=== PATIENT | female | born 1945 | race Caucasian/White ===

== ENCOUNTER 2020-06-03 09:49 | Outpatient (RCR) | payer MEDICARE, SELFPAY ==
[2020-06-03] MEDS: COVID-19 VACC, MRNA(PFIZER)/PF 30 MCG/0.3 ML SYRINGE IM (17:02)
[2020-06-24] MEDS: COVID-19 VACC, MRNA(PFIZER)/PF 30 MCG/0.3 ML SYRINGE IM (16:27)
== END 2020-09-07 23:59 ==
LOC: IMMUN 09:49
PROVIDERS: PCP Internal Medicine; Visit Provider Family Medicine
DX: Z23 Encounter for immunization (principal)
CPT/HCPCS: 0001A; 0002A; 91300

== ENCOUNTER 2022-10-30 17:30 | Outpatient (RCR) | payer SELFPAY | END 2022-10-30 23:59 | LOC: NS 17:30 | PROVIDERS: PCP Internal Medicine | DX: Z71.3 Dietary counseling and surveillance (principal); E11.9 Type 2 diabetes mellitus without complications ==

== ENCOUNTER 2023-05-30 11:34 | Emergency (ER) | payer MEDICARE, SELFPAY ==
[2023-05-30] VITALS (11 sets, daily range): BP systolic 104–141; BP diastolic 56–77; PULSE 82–112; RESP 14–19; TEMP 36.2–36.4; O2SAT 96–100; BMI 24.1
--- NOTE | 2023-05-30 12:03 | RAD_ITS ---
STUDY: X-RAY CHEST REASON FOR EXAM: Female, 77 years old. Sob TECHNIQUE: Single AP portable view of the chest. COMPARISON: Comparison is made with prior study February 18, 2029. FINDINGS: EKG electrodes are seen. The lungs are clear and expanded. There is no demonstrated pleural abnormality. Normal size heart. Normal mediastinum and quinton. Normal visualized pulmonary arteries. There is atherosclerotic calcification of the aortic arch with tortuosity. There are diffuse degenerative changes of the visualized thoracic spine. Prior right rotator cuff surgery. Degenerative changes at the acromioclavicular joints. There is no demonstrated abnormality of the visualized soft tissue structures of the upper abdomen. RAD/Chest 1 View (Portable) IMPRESSION: No acute abnormality is seen. Electronically Signed: Pablo Baxter MD at 13:21 EST ,
--- NOTE | 2023-05-30 12:04 | EKG12_ITS ---
Test Reason : HYPOTENSION Blood Pressure : / mmHG Vent. Rate : 090 BPM Atrial Rate : 090 BPM P-R Int : 144 ms QRS Dur : 082 ms QT Int : 408 ms P-R-T Axes : 066 -03 137 degrees QTc Int : 499 ms Normal sinus rhythm ST & T wave abnormality, consider anterolateral ischemia Prolonged QT Abnormal ECG Confirmed by ISIAH COLEMAN, SHELLY ([id number]), assistant production editor LELA JOHNSON ([id number]) on 06/04/2023 6:58:25 AM Referred By: ELVIN Confirmed By:LUIS A JOYCE MD
[2023-05-30] MEDS: 0.9% Normal Saline (1000mL) 1,000 ML 1000 ML IV (12:16)
--- NOTE | 2023-05-30 12:23 | EDS_ITS ---
HPI History of Present Illness Chief Complaint: Weakness Informant: patient Narrative Narrative: Patient is a 77-year-old female with history of hypertension, diabetes mellitus and coronary artery disease presenting with low blood pressure. Patient for outpatient cardiac stents placed 2 days ago at [facility]. Patient states since then she has been feeling lightheaded. She notes her blood pressure is normally high (140s). She has since been feeling weak and dizzy. She denies associated chest pain or shortness of breath but has been having some nausea and daily vomiting which she describes as yellow. She had a phone call today from [facility] to check and see how she was doing after her procedure. She told about her symptoms and had her check her blood pressure. At home her blood pressure was 89/48 and they recommend she come to the nearest emergency room. Patient notes that she is chronically constipated with no acute change in her stools. Eyes any black or blood in her stool. Denies abdominal pain or urinary symptoms. She does tell me that she has been having some mild headache and neck ache since even before her procedure. She is unsure if it is related. She also recently sprained her right ankle. Denies any swelling of her legs. Denies any history of DVT or PE. No other complaints or concerns verbalized at this time. Outpatient records of cardiac catheterization reviewed. Patient had PCI of the LAD 1994 and is found to have multivessel coronary artery disease on cardiac catheterization performed for an abnormal stress test. She had PCI directed to the LAD and RCA performed 2 days ago. She started on aspirin and Plavix. PFSH PFSH Home Medications acetaminophen 500 mg tablet (Acetaminophen Extra Strength) 500 mg PO Q6H PRN HIP PAIN 05/30/23 [History Last Taken 05/29/23] aspirin 81 mg tablet,delayed release (Adult Aspirin Regimen) 81 mg PO QHS HEART HEALTH 05/30/23 [History Last Taken 05/29/23] clopidogrel 75 mg tablet 75 mg PO DAILY BLOOD THINNER 05/30/23 [History Last Taken 05/29/23] escitalopram oxalate 10 mg tablet 10 mg PO DAILY DEPRESSION 05/30/23 [History Last Taken 05/29/23] gabapentin 400 mg capsule 400 mg PO QHS NERVE PAIN 05/30/23 [History Last Taken 05/29/23] insulin glargine 100 unit/mL (3 mL) subcutaneous pen (Lantus Solostar U-100 Insulin) 28 unit subcut DAILY BLOOD SUGARS 05/30/23 [History Last Taken 05/27/23] lisinopril 10 mg tablet 10 mg PO BID BLOOD PRESSURE 05/30/23 [History Last Taken 05/29/23] loratadine-pseudoephedrine ER 10 mg-240 mg tablet,extended [id number] (AllerCle ar D-24hr) 1 tab PO Q24H PRN SEASONAL ALLERGIES 05/30/23 [History Last Taken 05/29/23] metformin 500 mg tablet,extended release 24 hr 500 mg PO DAILY BLOOD SUGARS 05/30/23 [History Last Taken 05/27/23] semaglutide 0.25 mg or 0.5 mg (2 mg/3 mL) subcutaneous pen injector (Ozempic) 0.5 mg subcut SA DIABETES 05/30/23 [History Last Taken 05/26/23] Allergy/AdvReac Type Severity Reaction Status Date / Time nitrofurantoin Allergy Other Verified 05/30/23 11:39 [From Macrobid] Sulfa (Sulfonamide Allergy Hives Verified 05/30/23 11:39 Antibiotics) [id number] Reductase AdvReac Mild WEAKNESS Verified 05/30/23 11:39 Inhibitor Surgical History Hx of heart artery stent Social History Smoking Status: Never smoker ROS ROS ED Constitutional Constitutional ED: Reports other Details: lightheaded, near syncope ; Denies chills or fever(s) Eyes Eyes: Denies blurry vision or change in vision Cardiovascular Cardiovascular: Denies chest pain or palpitations Respiratory/Chest Respiratory/Chest: Denies cough or dyspnea Gastrointestinal Gastrointestinal: Reports vomiting; Denies abdominal pain or constipation Genitourinary Genitourinary ED: Denies dysuria or urinary frequency Musculoskeletal Musculoskeletal: Denies arthralgias or myalgias Integumentary Denies rash Neurologic Neurologic: Reports headache(s); Denies paresthesias or weakness Psychiatric Psychiatric: Denies anxiety EXAM Physical Exam Const Vital Signs: 05/30/23 11:35 05/30/23 11:42 05/30/23 12:35 Temperature 97.2 F L Temperature Source Temporal Pulse Rate 96 87 Pulse Rate [Lying] Pulse Rate [Sitting (for 1 minute prior to obtaining)] Pulse Rate [Standing (for 1 minute prior to obtaining)] Respiratory Rate 15 14 Respiratory Effort Normal Non-Labored Respiratory Pattern Normal Blood Pressure 106/56 L 104/59 L Blood Pressure [Lying] Blood Pressure [Sitting (for 1 minute prior to obtaining)] Blood Pressure [Standing (for 1 minute prior to obtaining)] Blood Pressure Mean 72 74 Blood Pressure Mean [Lying] Blood Pressure Mean [Sitting (for 1 minute prior to obtaining)] Blood Pressure Mean [Standing (for 1 minute prior to obtaining)] Pulse Ox 100 98 Oxygen Delivery Method Room Air Room Air 05/30/23 13:00 05/30/23 13:53 05/30/23 14:20 Temperature Temperature Source Pulse Rate 83 88 Pulse Rate [Lying] 85 Pulse Rate [Sitting (for 1 minute prior to obtaining)] 92 Pulse Rate [Standing (for 1 minute prior to obtaining)] 108 H Respiratory Rate 18 16 Respiratory Effort Respiratory Pattern Blood Pressure 118/66 131/66 H Blood Pressure [Lying] 119/69 Blood Pressure [Sitting (for 1 minute prior to obtaining)] 118/66 Blood Pressure [Standing (for 1 minute prior to obtaining)] 128/76 H Blood Pressure Mean 83 87 Blood Pressure Mean [Lying] 85 Blood Pressure Mean [Sitting (for 1 minute prior to obtaining)] 83 Blood Pressure Mean [Standing (for 1 minute prior to obtaining)] 93 Pulse Ox 100 97 Oxygen Delivery Method Room Air Room Air 05/30/23 14:30 05/30/23 15:04 05/30/23 16:19 Temperature 97.6 F L Temperature Source Pulse Rate 89 82 93 Pulse Rate [Lying] Pulse Rate [Sitting (for 1 minute prior to obtaining)] Pulse Rate [Standing (for 1 minute prior to obtaining)] Respiratory Rate 14 19 H 17 Respiratory Effort Respiratory Pattern Blood Pressure 130/74 H 125/73 H 125/71 H Blood Pressure [Lying] Blood Pressure [Sitting (for 1 minute prior to obtaining)] Blood Pressure [Standing (for 1 minute prior to obtaining)] Blood Pressure Mean 92 90 89 Blood Pressure Mean [Lying] Blood Pressure Mean [Sitting (for 1 minute prior to obtaining)] Blood Pressure Mean [Standing (for 1 minute prior to obtaining)] Pulse Ox 98 98 Oxygen Delivery Method Room Air Positive well nourished General Appearance ED: NAD HEENT Reports moist mucous membranes Eyes PERRL Neck supple and no JVD Chest Wall inspection of chest normal and palpation of chest normal Resp normal respiratory effort and clear to auscultation bilaterally Cardio regular rate, regular rhythm and no murmurs GI normal to inspection, nondistended, normoactive bowel sounds and non-tender Palpation: Negative for guarding Back/Spine no CVA tenderness Extremity normal to inspection General Extremety ED: Negative for edema General Extremity: Negative for edema Neuro oriented x3 Sensorium / Orientation: alert Motor Exam: Negative for general weakness Psych mental status grossly normal Skin no rashes or lesions noted and no wounds Skin Narrative: Ecchymosis of the right wrist consistent with bruising associated the recent cardiac catheterization. No associated hematoma or pulsatile mass appreciated. MDM MDM MDM Narrative Medical decision making narrative: Patient is evaluated for low blood pressure at home. She had an outpatient cardiac catheterization 2 days ago. Patient blood pressures are soft but she is not hypotensive in the ER. Workup including CBC, D-dimer, lactate, troponin and BMP obtained given her hypotension and recent cardiac catheterization. She is given a liter of IV fluid with improvement of her blood pressure in the ER. She is not tachycardic. EKG shows T wave inversions in lateral leads as well as precordial leads however I do not have a comparison. Patient is a very mild leukocytosis of 11.2 of unclear clinical significance. No signs of left shift. She has a mild anemia with a hemoglobin of 11.7. Coags are normal. Patient states has been compliant with her Plavix and aspirin. Her D-dimer is elevated at 0.95 however her creatinine is more significantly elevated at 1.94. She is a mild hyponatremia with a sodium of 130 and hyperglycemia the glucose of 275. Patient does tell me that she has not been taking her diabetic medications this week. [place] [address]. Labs from Sunday on [facility] show a creatinine of 1.39, glucose of 85 and sodium of 136. Given the significantly elevated troponin and I believe that a proportion to her recent stent, I discussed the case with cardiology on-call, Dr. Avery. He feels that patient would get the most benefit out of transfer back to [facility] were all of her workup has previously been and they have all of her records. Patient is agreeable with this. I spoke with transfer line and spoke with nurse practitioner for the cardiac ICU, Patricia. She tells me that the patient's prior EF was 55% and the T wave versions in the lateral leads are old but it appears that the T wave inversions in the anterior leads are new. Given this information she started on a heparin drip will be treated as an NSTEMI. She is accepted by Dr. Queen to the cardiac floor but after discussion with nurse practitioner we both agree that she does not require a cardiac ICU level of care despite her elevated lactate. She is fluid responsive in the ER. On repeat evaluation patient states that she still feels a lot of tightness in her neck but she is not sure if this is anxiety related. She is given 0.5 IV Ativan with improvement of this. Patient remains hemodynamically stable in the ER and agreeable with plan of care. Will refrain from CTA given her DUNCAN at this time but patient is empirically treated on heparin drip. Per request of CICU, bedside cardiac ultrasound performed by myself which does not show any obvious abnormality such as a large pericardial effusion, tamponade pathology or significantly low EF on gross examination. Differential diagnosis includes ACS, volume depletion, septicemia, electrolyte abnormality, decompensated hyperglycemia (DKA), NSTEMI, coronary artery dissection, abnormality of the stents, PE Lab Data Attestation: I reviewed the patient's lab results. Labs: Laboratory Results - last 24 hr 05/30/23 12:17 WBC 11.2 H RBC 4.36 Hgb 11.7 L Hct 37.0 MCV 84.9 MCH 26.8 L MCHC 31.6 L RDW Std Deviation 43.9 RDW Coeff of Dimitris 14.3 Plt Count 450 MPV 8.8 Immature Gran % (Auto) 0.400 Neut % (Auto) 68.4 Lymph % (Auto) 20.8 Glenn % (Auto) 9.3 Eos % (Auto) 0.5 Baso % (Auto) 0.6 Absolute Neuts (auto) 7.6 Absolute Lymphs (auto) 2.32 Nucleated RBC % 0 PT 13.3 INR 1.0 APTT 30.3 D-Dimer Quant (PE/DVT) 0.95 H* Sodium 130 L Potassium 4.6 Chloride 98 Carbon Dioxide 21.0 Anion Gap 11 BUN 37 H Creatinine 1.94 H Estim Creat Clear Calc 21.51 Est GFR (MDRD) Af Amer 32 L Est GFR (MDRD) Non-Af 27 L BUN/Creatinine Ratio 19.1 Glucose 275 H Lactic Acid 3.4 H* Calcium 9.3 Troponin I High Sens 16445 H* Radiography Chest X-Ray - ED: 1 View, Read by ED Physician, Read by Radiologist and No Acute Disease Diagnostic Testing: Clinical Impression(s) from Imaging Studies Chest X-Ray 05/30/23 12:03 IMPRESSION: No acute abnormality is seen. Electronically Signed: Pablo Baxter MD at 13:21 EST , Rhythm Strip Rhythm Strip: Sinus Rhythm Rate: 90 Ectopy: None EKG Initial EKG: Attestation: I personally reviewed and interpreted this EKG as follows: Interpretation: Sinus Rhythm Comments: Normal sinus rhythm rate of 90 bpm Normal axis Normal intervals Nonspecific T wave changes in lateral and anterior leads, no prior EKG available for comparison Critical Care Time Critical Care Time: Yes Critical care time (excluding procedures): 30-74 minutes (40), Discussing w/Pa tient &/or Family/Entry Level, Discussing w/Consultants, Arranging Admission or Transfer and Performing Direct Patient Care at Bedside Discharge Plan Triage Chief Complaint: Weakness ED Provider: Lynda Schultz Dx/Rx/DC Orders Clinical Impression: DUNCAN (acute kidney injury), Light-headed, Hyperglycemia, Hyponatremia, Non-ST elevation NV (NSTEMI), Elevated lactic acid level Prescriptions: No Action clopidogrel 75 mg tablet 75 mg PO DAILY escitalopram oxalate 10 mg tablet 10 mg PO DAILY gabapentin 400 mg capsule 400 mg PO QHS metformin 500 mg tablet extended release 24 hr 500 mg PO DAILY insulin glargine [Lantus Solostar U-100 Insulin] 100 unit/mL (3 mL) insulin pen 28 unit SUBCUT DAILY lisinopril 10 mg tablet 10 mg PO BID Ozempic 0.25 mg or 0.5 mg (2 mg/3 mL) pen injector 0.5 mg SUBCUT SA acetaminophen [Acetaminophen Extra Strength] 500 mg tablet 500 mg PO Q6H PRN (Reason: HIP PAIN ) Patient Comments: PT STATES THAT THEY TYPICALLY TAKE THIS EVERY DAY FOR THEIR HIP PAIN. aspirin [Adult Aspirin Regimen] 81 mg tablet,delayed release (DR/EC) 81 mg PO QHS AllerClear D-24hr 10-240 mg tablet extended release 24 hr 1 tab PO Q24H PRN (Reason: SEASONAL ALLERGIES ) Primary Care Provider: Alphonso Russell Referrals: Alphonso Russell MD [Primary Care Provider] - Disposition Disposition: Acute Care Hospital Discharge Location: [facility]
[2023-05-30 12:27] LABS: Absolute Lymphocyte Count 2.32 X10^3/uL (0.83-4.51); Absolute Neutrophil Count 7.6 X10^3/uL (2.0-7.7); Basophil# 0.07 X10^3/uL; Basophil% 0.6 % (0-1); Eosinophil# 0.06 X10^3/uL; Eosinophils% 0.5 % (0-5); Hemoglobin 11.7 g/dL (12.0-15.0); Lymphocyte # 2.32 X10^3/ul (0.83-4.51); Lymphocyte % 20.8 % (19-41); Mean Corp Hgb Conc 31.6 g/dL (32-36); Mean Corpuscular Hgb 26.8 pg (27.0-32.0); Mean Corpuscular Volume 84.9 fL (81-99); Mean Platelet Vol. 8.8 fl (6.2-12.0); Monocyte# 1.04 X10^3/uL; Monocyte% 9.3 % (0-10); NRBC Flagged by Analyzer 0 % (0-5); Neutrophil # 7.63 X10^3/uL (2.7-7.7); Neutrophil % 68.4 % (47-70); Platelet Count 450 K/mm3 (150-450); RBC Distribution Width CV 14.3 % (11.6-14.6); RBC Distribution Width SD 43.9 fl (35.1-43.9); Red Blood Count 4.36 M/mm3 (4.2-5.4); White Blood Count 11.2 K/mm3 (4.4-11.0)
[2023-05-30 12:56] LABS: D-Dimer Quantitative (DVT/PE) 0.95 FEU/ug/m (0.27-0.49)
[2023-05-30 12:58] LABS: Lactic Acid 3.4 mmol/L (0.4-1.9)
[2023-05-30 13:08] LABS: Anion Gap 11 (5-15); BUN 37 mg/dL (7-18); BUN/Creat Ratio 19.1 RATIO (10-20); Calcium,Total 9.3 mg/dL (8.5-10.1); Chloride 98 mmol/L (98-107); Creatinine, Serum 1.94 mg/dL (0.55-1.02); EST Glomerular Filtration Rate 27 mL/min (>60); Est Glom Filt Rate - Afr Amer 32 mL/min (>60); Estimated Creatinine Clearance 21.51 ml/min; Glucose 275 mg/dL (74-106); Potassium 4.6 mmol/L (3.5-5.1); Sodium Level 130 mmol/L (136-145); Troponin-I HS (w/2H Reflex) 35430 pg/mL (3.0-54.0)
[2023-05-30] MEDS: Lorazepam 2 MG/ML WCH Syringe 0.5 MG IV (14:35)
[2023-05-30] MEDS: 0.9% Normal Saline (1000mL) 1,000 ML 100 ML IV (14:35)
[2023-05-30] MEDS: Heparin Injection (Vial) 5,000 UNIT/ML VIAL 4000 UNIT IV (15:35)
[2023-05-30] MEDS: HEPARIN/D5w 25,000 UNITS 25,000 UNITS/250 ML IV.SOLN. 0.1 UNITS CONT INF (15:36)
[2023-05-30 15:38] LABS: Prothrombin Time (Protime)PT. 13.3 SECONDS (11.7-14.9)
[2023-05-30 15:39] LABS: Partial Thromboplast Time 30.3 Seconds (24.1-36.2)
--- NOTE | 2023-05-30 15:39 | CHAPLAIN ---
Type of Pastoral Visit _x__ Initial Visit ___ Follow-up Visit ___ On-call Visit ___ General Patient Visit ___ Spiritual Assessment ___ Family Conference ___ Bereavement ___ Rapid Response ___ Code Blue ___ Other (describe below) Pastoral Care Referral From _x__ Patient _x__ Family ___ Nurse ___ Physician ___ Forensics Team Director ___ Glass Edger ___ Other (describe below) Sacrament/Intervention _x__ Active listening ___ Anointing ___ Oriental Orthodox ___ Bereavement ___ Communion ___ Lexii exploration ___ ___ Life review _x__ Prayer ___ Reconciliation ___ Sacrament of Sick _x__ Supportive presence ___ Wedding ___ Other (describe below) Pastoral Comments patient is to be transferred and is concerned about her health as she just had four stents placed earlier this week; pt asks for presence, prayers, support, and contact to be made with her protestant
[2023-05-30 16:22] LABS: Reflex Lactate? Y
--- NOTE | 2023-05-30 16:24 | ED.RN ---
[facility] CALLED AT 1415, ETA 2-3 HOURS ([phone]). REQUESTED OUTSOURCING, RAYMUNDO FROM [facility] CALLED BACK AT 1624 TO LET US KNOW HE REACHED OUT AND NO OUTSOURCING WAS AVAILABLE.
--- NOTE | 2023-05-30 18:10 | EKG12_ITS ---
Test Reason : CP Blood Pressure : / mmHG Vent. Rate : 111 BPM Atrial Rate : 111 BPM P-R Int : 148 ms QRS Dur : 100 ms QT Int : 364 ms P-R-T Axes : 067 -27 139 degrees QTc Int : [address] & T wave abnormality, consider lateral ischemia Abnormal ECG Confirmed by ISIAH COLEMAN, SHELLY ([id number]), editor map LELA JOHNSON ([id number]) on 06/04/2023 9:35:04 AM Referred By: Confirmed By:LUIS A JOYCE MD
[2023-05-30] MEDS: LORazepam 0.5 MG Tablet PO (18:43)
--- NOTE | 2023-05-30 18:46 | ED.RN ---
SHORTLY AFTER INFORMING PT AND FAMILY THAT THE WOULD NOT BE ABLE TO SPEND THE NIGHT AT [facility] PT DEVELOPED CP. EKG AND BLOOD WORK OBTAINED. MEDICATED PT WITH ATIVAN SHE PREVIOUSLY REQUESTED.
[2023-05-30 19:07] LABS: Lactic Acid 1.9 mmol/L (0.4-1.9)
[2023-05-30 19:46] LABS: Troponin-I HS 26492 pg/mL (3.0-54.0)
== END 2023-05-30 20:30 | disposition short-term general hospital (02) ==
PROVIDERS: Student in an Organized Health Care Education/Training Program; Emergency Provider Emergency Medicine; PCP Internal Medicine; Visit Provider Emergency Medicine
DX: I21.4 Non-ST elevation (NSTEMI) myocardial infarction (principal); E11.65 Type 2 diabetes mellitus with hyperglycemia; Z79.4 Long term (current) use of insulin; N17.9 Acute kidney failure, unspecified; I95.9 Hypotension, unspecified; E87.1 Hypo-osmolality and hyponatremia; I25.10 Atherosclerotic heart disease of native coronary artery without angina pectoris; I10 Essential (primary) hypertension; R42 Dizziness and giddiness; R74.02 Elevation of levels of lactic acid dehydrogenase [LDH]; Z95.5 Presence of coronary angioplasty implant and graft; Z79.82 Long term (current) use of aspirin; Z79.02 Long term (current) use of antithrombotics/antiplatelets; Z79.899 Other long term (current) drug therapy
CPT/HCPCS: 71045; 80048; 83605; 84484; 85025; 85379; 85610; 85730; 93005; 96360; 96361; 99285; J7030; A4216

== ENCOUNTER → 2023-07-13 09:57 | Outpatient (CLI) | payer MEDICARE, SELFPAY ==
--- NOTE | 2023-07-13 10:13 | PCM.CR.HP2 ---
CR - History & Physical General Arrival date:: 07/13/23 Arrival time:: 10:13 Date of Referral:: 07/04/23 Date of CR Evaluation:: 07/13/23 Referring Physician: Dr. Kina Pearson Primary Diagnosis: PCI with coronary stent History of Present Cardiac Event Onset Date PTCA or coronary stenting:: Yes Vessel: onset06/14/2023 Medications Ambulatory Orders Medication Instructions Recorded acetaminophen 500 mg tablet 500 mg PO Q6H PRN HIP PAIN 05/30/23 (Acetaminophen Extra Strength) aspirin 81 mg tablet,delayed 81 mg PO QHS HEART HEALTH 05/30/23 release (Adult Aspirin Regimen) clopidogrel 75 mg tablet 75 mg PO DAILY BLOOD THINNER 05/30/23 escitalopram oxalate 10 mg tablet 10 mg PO DAILY DEPRESSION 05/30/23 gabapentin 400 mg capsule 400 mg PO QHS NERVE PAIN 05/30/23 insulin glargine 100 unit/mL (3 28 unit subcut DAILY BLOOD SUGARS 05/30/23 mL) subcutaneous pen (Lantus Solostar U-100 Insulin) lisinopril 10 mg tablet 10 mg PO BID BLOOD PRESSURE 05/30/23 loratadine-pseudoephedrine ER 10 1 tab PO Q24H PRN SEASONAL 05/30/23 mg-240 mg tablet,extended ALLERGIES [id number] (AllerClear D-24hr) metformin 500 mg tablet,extended 500 mg PO DAILY BLOOD SUGARS 05/30/23 release 24 hr semaglutide 0.25 mg or 0.5 mg (2 0.5 mg subcut SA DIABETES 05/30/23 mg/3 mL) subcutaneous pen injector (Ozempic) Allergies Allergies nitrofurantoin [From Macrobid] Allergy (Verified 05/30/23 11:39) Other Gets pneumonia Sulfa (Sulfonamide Antibiotics) Allergy (Verified 05/30/23 11:39) Hives [id number] Reductase Inhibitor Adverse Reaction (Mild, Verified 05/30/23 11:39) WEAKNESS Sleep Disorder Evaluation Hx of Sleep Apnea: No Do you snore loudly (louder than talking or can be heard through closed doors)?: No Do you often feel tired/ fatigued/ sleepy during daytime?: No Has anyone observed you stop breathing during sleep?: No History of Hypertension (for STOP score): Yes STOP Results: Negative Advanced Directives Advanced Directives Power of Plant Physiologist: Yes Living Will: Yes Advance Directives Information Provided: Yes Advance Directives on File: No DNR Order?:: No Past Medical History Covid-19 Screening Physicial Symptoms Other Clinical Concerns Exposure Risk Pertinent Comorbidities 65 years or older:: Yes Has a serious heart condition:: Yes Has chronic kidney disease undergoing dialysis:: Yes Past Surgical History Surgical History Hx of heart artery stent Social History Smoking History Smoking Status: Never smoker Alcohol Use Alcohol Usage: No Substance Abuse Hx Substance Use: No Occupation Occupation (List type of work in comments):: Retired Hobbies, Recreation, Social Activities Hobbies: Reading Recreational Activities: I am able to engage in all my recreational activities Social Environment Status Marital Status: Current Living Arrangements Living Environment:: Spouse Children How many children do you have?: 4 Do any of your children live nearby?: Yes Safety Do you feel safe in your surroundings?: Yes Assistance Do you need any assistance at home?: no Review of Systems Review of Systems Hints Review of Present Symptoms: Reports Dizziness/Lightheadedness, Fatigue, Heart Arrhythmia/Irregularities, Appetite - Special Diet and Sleep - Normal; Denies Shortness of Breath at Rest, Shortness of Breath with Exertion, PVD, Operative Discomfort, Angina, Wound Healing, Appetite - Normal or Sexual Changes Pain Is Patient Pain Free?: Yes Risk Factor Assessment Chief Complaint Chief Complaint: PCI with coronary stent Vital Signs Pulse Ox: 100 Blood Pressure: 132/60 Pulse Pulse Rate: 61 Hypertension How long have you been treated?: 30 years Blood Pressure Sitting - Left Arm: 132/60 Diabetes Diabetic History: Type II Nutrition Referral for Diabetes: No Obesity Height: 5 ft 5 in Weight:: 147 lb 12.8 oz Weight in Pounds: 147.8 lbs Body Mass Index (BMI): 24.5 Nutritional Referral for Obesity: No Physical Inactivity Physical Inactivity: Recreational activity Risk Stratification Risk Guidelines: Lowest Risk: Risk Factor for Smoking, Moderate Risk: Risk Factor for Obesity, Risk Factor for Sedentary Lifestyle and Risk Factor for Depression and Highest Risk: Risk Factor for Dyslipidemia, Risk Factor for Diabetes and Risk Factor for Hypertension For Smoking Smoking Risk Guidelines For Dyslipidemia Dyslipidemia Risk Guidelines For Diabetes Mellitus Diabetes Risk Guidelines For Obesity/Overweight Obesity/Overweight Risk Guidelines For Hypertension Hypertension Risk Guidelines For Sedentary Lifestyle Sedentary Lifestyle Risk Guidelines For Depression Depression Risk Guidelines Motivation Motivation to Participate On a scale of 1 to 10, how prepared are you to commit to attending program?: 8 What do you see as barriers to successfully being able to complete the program?: no What do you see as the benefits of succesfully completing the program? In other words, what do you hope to get out of participating in the program?: learn what she can do Are there issues you are dealing with that will interfere with completing the program?: no Do you have a spouse or signficant other, family or friends who will help support you to complete the program?: yes
--- NOTE | 2023-07-13 10:19 | CR.ITP_ITS ---
Diagnosis General Information Admitting Diagnosis: PCI with coronary stent Personal Learning Style:: Audio/Visual Stage of change r/t lifestyle modifications:: Contemplation Gave educational material for:: Treating Heart Disease, How The Heart Works, Wha t it means to have Heart Disease, How Coronary Artery Disease is Diagnosed, Heart Procedures, What Heart Medications Do, Risk Factors & Modifications, Living an Active Life, Nutrition, Emotions & Heart Disease, Stress Management & Relaxation and Sleep Disorders & Heart Disease Education/Goals Cardiac Rehabilitation Goals Personal Goals: Initial Assessment: Improve energy level, Participate in home exercise program and Improve muscle strength and endurance Scale for measuring improvement of personal goals Diagnosis & Disease Process Outcomes/Goals: Pt IDs own risk factors & lifestyle modifications by Session 10, Verbalizes symptoms of angina & response by session 3., Pt independently manages and Other Additional Outcomes/Goals: Plan/Interventions: Assist Pt to ID & engage in lifestyle modification to reduce CVD risk, Instruct on individual risk factors, Review symptoms of angina & emergency actions, Review secondary diagnosis & identify educational needs. and Other see comment 30 day Reassessments:: Not Met 30 day Reassessments:: Not Met 30 day Reassessments:: Not Met 30 day Reassessments:: Not Met Final Reassessments:: Not Met Safety Referral to Physical Therapy: No Referral to [facility] Case Management: No Fall Risk Assessed:: Yes Assistive Devices:: None Exercise - Initial Assessment Visit Date of Eval: 07/13/23 (initial eval ) Mets: Pre-: >3 METS for 30 minutes by discharge, >5 METS for 30 minutes by discharge, >7 METS for 30 minutes by discharge and Unable to meet goal due to: (see comment below) Physician Prescribed Exercise Modalities: Treadmill, Rower, Airdyne, NuStep, SciFit and Lateral [employer] Frequency: 3x/week for 12 weeks [36 sessions] Intensity: 60-80% of age predicted maximum heart rate reserve Duration: 30 - 45 minutes Current METSs:: 3 Target Heart Rate:: Rest +20 EKG Type: NSR with HX of Sinus Tach Outcomes & Goals Goals:: Verbalizes understanding of THR, RPE & goal METS by session 6, Documents in home exercise log/reports 30 min aerobic 5 day/wk by DC, Demonstrates accurate pulse taking by DC and Other additional outcome/goals: see below Intervention & Plan Exercise Program Goals: Instruct on personal THR & RPE, Instruct on MET level & personal MET goal, Show patient to take own pulse /validate performance until accurate, Instruct on home exercise and Other additional plan/int Physical Activity Home Exercise Physical Activity - Home Exercise: Safe Exercise, Warm-up, Self-monitoring, Cool-Down, Home Exercise > 30 min Daily and Sitting Time <3 hours/daily Outcomes & Goals Outcomes/Goals: Demonstrates correct Warm-up/exercise Cool-Down (S3) if = 2.5 METs, Verbalizes symptoms of exercise intolerance by Session 3 (S3), Demonstrate safe equipment use (S3) & follows exercise prescrition (6) and Other: See below Intervention & Plan Plan/Intervention: Instruct warm-up & cool-down if exercising at > 2 METs, Instruct on symptoms of exercise intolerance & actions to take, Instruct & monitor on saf, Assess intial functional capacity & safety risk and Other See below Nutrition - Initial Assessment Program Goals Nutrition Program Goals Patient has diagnosis of Hyperlipidemia (ICD E78)?: Yes Visit Date of Eval: 07/13/23 (initial eval ) Cholesterol/Lipids (Other Core Measures) Determine presence & major risk factors that modify LDL goal: Hypertension or hypertensive medication, Low HDL cholesterol <40 mg/dL*, Family history of premature CHD in Male < 55 years: female <65 yearsFa and Age men > 45 years; women >/= 55 years Outcomes/Goals: Pt IDs own risk factors & lifestyle modifications by Session 10, Verbalizes symptoms of angina & response by session 3., Pt independently manages and Other Additional Outcomes/Goals: Intervention/Plan: Advocate for lipid panel cholesterol medication if applicable, Instruct on personal lipid levels & lipid goals/NCEP guidelines, Instruct on cholesterol and Other additional plan/int Referral to dietitian:: No Diabetes (Other Core Measures) Diabetes Type: Diagnosis Type II ICD-10 E11 Insulin dependent injection/pump?: Yes Non-Insulin Dependent?: Yes Do you monitor your blood sugar at home?: Yes Referral to Diabetic Clinic:: No Outcomes/Goals:: Able to state symptoms of, Able to state, Able to state and Other additional Intervention/Plan:: Instruct on, Refer to, Instruct on and Other Weight Mgt (Other Care) Height: 5 ft 5 in Weight:: 147 lb 12.8 oz BMI: 24.5 Diagnosis Overweight/Obesity BMI> 30% ICD-10 E66: No Diagnosis High BMI/Morbid Obesity BMI> 35% ICD-10 Z68: No Outcomes/Goals: Pt sets, maintains & shows weight loss goal & trend during rehab and Other additional outcomes/goals Intervention/Plan: Instruct on ideal BMI & set weight loss goal w/patient, Assist pt to ID & incorporate diet changes for weight loss by S9, Refer to Structured Weight Loss program as appropriate, Encourage goal of using 250- 300dcal per session for weight loss and Other additional plan/interventions Healthy Eating Habits Will attend diet classes:: Yes Outcomes/Goals:: Consume diet rich in vegs,fruits,whole grain/high fiber,fish,lean meat, Limit sat/trans fats,cholesterol & added salts & sugars and Other additional outcome/goals: Intervention/Plan:: Assess current eating habits and Other Additional plan/interventions Education Gave educational materials for:: Signs & symptoms of hypoglycemia, Signs & symptoms of hyperglycemia, Relate diabetes to coronary artery disease and Healthy eating Core - Initial Assessment Visit Date of Eval: 07/13/23 (initial eval ) Medication Compliance Preventative Medication(s):: Aspirin, Statin/lipid and Beta carmita H/O mental health issues: depression, anxiety, or addiction?: No Doesn?t believe in the benefits of treatment?: No Believes medications are unnecessary or harmful?: No Has a concern about medication side effects?: No Expresses concern over the cost of medications?: No Outcomes/Goals: Verbalizes medications,desired effect & common side effects @ DC, Pt self-reports following medication regimen, Keeps card in wallet w/medications listed by DC and Other additional outcome/goals: Interventions/plans: Instruct on medication effects & side effects, Review medication list w/patient every two weeks, Instruct importance of taking meds as ordered & assist problem solving and Other additional Tobacco Use Tobacco Use: Non-smoker Hypertension Hypertension Diagnosis:: Hypertension ICD-10 I10 Resting Blood Pressure:: 132/60 Citizen Of [place] [employer] Hypertension Guidelines Outcomes/Goals: Able to verbalize/achieve optimal blood pressure <130/80, Incorporates diet changes & exercise for blood pressure control by DC and Other additional outcomes/goals Interventions/plan: Instruct on optimal blood pressure, hypertension & medications, Instruct on effects of sodium, alcohol, stress, exercise &hypertension and Other additional plan/interventions Tobacco Cessation Referral Smoking Cessation Referral:: No Individual Education/Counseling:: No Education Schedule Given:: Yes Psychosocial - Initial Assess VIsit Date of Eval: 07/13/23 (initial eval ) History of previous Mental disease:: No Target Goals Target Goals Outcomes/Goals: See list Psychosocial Outcomes/Goals:: ID's personal stressors & 2 strategies to manage stress by discharge and Other Additional outcome/goals: Intervention/Plan: See List Interventions/Plan:: Assess stressors,coping strategies & signs of derpression on admission, Instruct/assist pt to develop coping & personal stress Mgt strategies, Refer to Behavioral Health if appropriate, Refer to Physician if appropriate, Instruct patient to recognize signs & symptoms of depression, Instruct patient to recog and Other additional plan/intervention Patient Health Questionnaire PHQ-9 Screening Initial Assessment: 1. Little interest or pleasure in doing things: Not at all 2. Feeling down, depressed, or hopeless: Not at all 3. Trouble falling or staying asleep, or sleeping too much: Not at all 4. Feeling tired or having little energy: Several days 5. Poor appetite or overeating: Not at all 6. Feeling bad about yourself -- or that you are a failure or have let yourself or your family down: Not at all 7. Trouble concentrating on things, such as reading the newspaper or watching television: Not at all 8. Moving or speaking so slowly that other people could have noticed. Or the opposite - being so fidgety or restless that you have been moving around a lot more than usual: Not at all 9. Thoughts that you would be better off , or of hurting yourself in some way: Not at all How difficult have these problems made it for you to do your work, take care of things at home, or get along with other people?: Not difficult at all Total Score: 1 COREEN-Q SV Test Statements CAD is a disease of the arteries in the heart: False Examples of risk factors for heart disease: True Angina is chest pain or discomfort: True The benefits of resistance training include: True Eating more meat and dairy products: False Anti-platelet medications such as aspirin are important: True The only effective way to manage stress: False An exercise warm-up slowly increases heart rate: True Prepared, processed foods usually have high sodium: True Depression is common after a heart attack: True The statin medications lower cholesterol: True To control blood pressure, lower the amount of sodium: True If someone gets chest discomfort during walking: False Transfats are partially hydrogenated vegetable oils: False Sleep apnea that is not treated increases the risk: I Don't Know To control cholesterol, one should become a vegetarian: False Someone knows if he/she is exercising at the right level: True Diabetes cannot be prevented with exercise & health eating: True Stress is a large risk for heart attack: True A diet that can help lower blood pressure is rich in: True Total Score Total Correct Responses: 17 Self-Efficacy 6-Item Scale Initial Assessment: We would like to know how confident you are in doing certain activities. Please select your confidence level for: Fatigue Select Number: 5 Physical Discomfort or Pain Select Number: 4 Emotional Distress Select Number: 4 Other Symptoms or Health Problems Select Number: 5 Different Tasks and Activities Select Number: 4 Medication Select Number: 5 Total Score:: 4 Nutrition Survey Nutrition Survey Instructions Scoring Instructions Nutrition Survey Initial: Have you lost >10 lbs over the past 2 months without trying?: No Are you following a special diet at home for diabetes, low fat, or low salt?: Yes Are you interested in meeting with a dietitian for help understanding your diet?: No Do you eat less than 3 meals a day?: Yes Do you eat fatty meats (dueñas, sausage, ribs, etc), fried foods, desserts, large amounts of salad dressings, margarine, butter, or cheese most days?: No Do you have food allergies? [Enter types in comment field]: No Do you eat in restaurants more than 3 times a week?: No Do you season food with salt, seasoning salt, or garlic salt?: Yes Do you used canned, boxed, frozen meals, or soups, seasoning packets?: No Total Score:: 3 Exercise - Final/Discharge Physician Prescribed Exercise Modalities: Treadmill, Rower, Airdyne, NuStep, SciFit and Lateral [place] Frequency: 3x/week for 12 weeks [36 sessions] Intensity: 60-80% of age predicted maximum heart rate reserve Current METSs:: 3 Target Heart Rate:: Rest +20 Nutrition - 30-Day Assessment Weight Mgt (Other Care) Height: 5 ft 5 in Weight:: 147 lb 12.8 oz BMI: 24.5 Nutrition - 60-Day Assessment Weight Mgt (Other Care) Height: 5 ft 5 in Weight:: 147 lb 12.8 oz BMI: 24.5 Core - Final Assessment Hypertension Resting Blood Pressure:: 132/60 Citizen [place] [employer] Hypertension Guidelines Core - 60-Day Assessment Hypertension Resting Blood Pressure:: 132/60 Citizen [place] [employer] Hypertension Guidelines Psychosocial - 30-Day Assess Target Goals Target Goals Psychosocial - 60-Day Assess Target Goals Target Goals Psychosocial - 90-Day Assess Target Goals Target Goals Psychosocial - Final Assessmen Target Goals Target Goals Nutrition - 90-Day Assessment Weight Mgt (Other Care) Height: 5 ft 5 in Weight:: 147 lb 12.8 oz BMI: 24.5 Nutrition - Final Assessment Program Goals Patient has diagnosis of Hyperlipidemia (ICD E78)?: Yes Weight Mgt (Other Care) Height: 5 ft 5 in Weight:: 147 lb 12.8 oz BMI: 24.5
[2023-07-13 10:38] VITALS: PULSE 61; O2SAT 100
[2023-07-13 10:42] VITALS: BP 132/60; BMI 24.5
[2023-07-13 11:10] VITALS: BMI 24.5
[2023-07-13 11:19] VITALS: BP 132/60
== END ==
PROVIDERS: PCP Internal Medicine
DX: I25.10 Atherosclerotic heart disease of native coronary artery without angina pectoris (principal); E11.22 Type 2 diabetes mellitus with diabetic chronic kidney disease; N18.32 Chronic kidney disease, stage 3b; I12.9 Hypertensive chronic kidney disease with stage 1 through stage 4 chronic kidney disease, or unspecified chronic kidney disease; E78.2 Mixed hyperlipidemia; I25.2 Old myocardial infarction

== ENCOUNTER 2023-07-30 11:15 | Outpatient (RCR) | payer MEDICARE, SELFPAY ==
[2023-07-13 11:10] VITALS: BMI 24.5
== END 2023-07-31 23:59 ==
LOC: CR 11:15
PROVIDERS: PCP Internal Medicine
DX: I25.10 Atherosclerotic heart disease of native coronary artery without angina pectoris (principal); E78.2 Mixed hyperlipidemia; I12.9 Hypertensive chronic kidney disease with stage 1 through stage 4 chronic kidney disease, or unspecified chronic kidney disease; N18.32 Chronic kidney disease, stage 3b; I21.4 Non-ST elevation (NSTEMI) myocardial infarction; E11.22 Type 2 diabetes mellitus with diabetic chronic kidney disease
CPT/HCPCS: 93798

== ENCOUNTER 2023-08-03 11:27 | Emergency (ER) | payer MEDICARE, SELFPAY ==
[2023-07-13 11:10] VITALS: BMI 24.5
[2023-08-03] VITALS (7 sets, daily range): BP systolic 102–122; BP diastolic 59–94; PULSE 71–130; RESP 14–19; TEMP 36.2–36.6; O2SAT 98–100
--- NOTE | 2023-08-03 11:41 | EKG12_ITS ---
Test Reason : AFIB Blood Pressure : / mmHG Vent. Rate : 149 BPM Atrial Rate : 271 BPM P-R Int : 000 ms QRS Dur : 080 ms QT Int : 258 ms P-R-T Axes : 000 017 137 degrees QTc Int : 406 ms Critical Test Result: High HR Atrial flutter with variable A-V block Marked ST abnormality, possible lateral subendocardial injury Abnormal ECG Confirmed by WILTON COLEMAN, TARIQ ([id number]), design editor BRIANNA MCLEAN ([id number]) on 08/06/2023 11:38:55 AM Referred By: SUPRIYA Confirmed By:TARIQ NÚÑEZ MD
[2023-08-03] MEDS: dilTIAZem 25 MG/5 ML Vial 20 MG IV BOLUS (11:54)
--- NOTE | 2023-08-03 11:54 | ED.VIS.CHEST ---
HPI <REGINALDO Justice - Last Filed: 08/03/23 15:32> History of Present Illness Chief Complaint: Palpitations Narrative Narrative: Patient presenting today from cardiac rehab due to new onset A-fib RVR. She reports that she had [address] Pearson at the [facility] about a month and a half ago. She has been intermittently lightheaded for the past few weeks, she was supposed to start a Holter monitor today. She was recently taken off of metoprolol due to her lightheadedness and because she had a low pulse. She reports that she has chronic shortness of breath with exertion, this has not been any worse. She reports a PMH of CAD, diabetes mellitus, hyperlipidemia, and hypertension. PFSH <REGINALDO Justice - Last Filed: 08/03/23 15:32> PFSH Medical History Diabetes Hyperlipidemia Hypertension Renal insufficiency Home Medications acetaminophen 500 mg tablet (Acetaminophen Extra Strength) 500 mg PO Q6H PRN HIP PAIN 05/30/23 [History Last Taken 05/29/23] aspirin 81 mg tablet,delayed release (Adult Aspirin Regimen) 81 mg PO QHS HEART HEALTH 05/30/23 [History Last Taken 05/29/23] clopidogrel 75 mg tablet 75 mg PO DAILY BLOOD THINNER 05/30/23 [History Last Taken 05/29/23] escitalopram oxalate 10 mg tablet 10 mg PO DAILY DEPRESSION 05/30/23 [History Last Taken 05/29/23] gabapentin 400 mg capsule 400 mg PO QHS NERVE PAIN 05/30/23 [History Last Taken 05/29/23] insulin glargine 100 unit/mL (3 mL) subcutaneous pen (Lantus Solostar U-100 Insulin) 28 unit subcut DAILY BLOOD SUGARS 05/30/23 [History Last Taken 05/27/23] lisinopril 10 mg tablet 10 mg PO BID BLOOD PRESSURE 05/30/23 [History Last Taken 05/29/23] loratadine-pseudoephedrine ER 10 mg-240 mg tablet,extended [id number] (AllerClear D-24hr) 1 tab PO Q24H PRN SEASONAL ALLERGIES 05/30/23 [History Last Taken 05/29/23] metformin 500 mg tablet,extended release 24 hr 500 mg PO DAILY BLOOD SUGARS 05/30/23 [History Last Taken 05/27/23] semaglutide 0.25 mg or 0.5 mg (2 mg/3 mL) subcutaneous pen injector (Ozempic) 0.5 mg subcut SA DIABETES 05/30/23 [History Last Taken 05/26/23] apixaban 5 mg tablet (Eliquis) 5 mg PO BID a-fib 30 days #60 tabs 08/03/23 [Rx Last Taken Unknown] bempedoic acid 180 mg tablet (Nexletol) 180 mg PO DAILY 08/03/23 [History Last Taken Unknown] diltiazem HCl 120 mg capsule,extended release 24 hr (Cardizem CD) 120 mg PO DAILY #30 caps 08/03/23 [Rx Last Taken Unknown] empagliflozin 10 mg tablet (Jardiance) 10 mg PO DAILY 08/03/23 [History Last Taken Unknown] ezetimibe 10 mg tablet 10 mg PO DAILY 08/03/23 [History Last Taken Unknown] metoprolol succinate 25 mg tablet,extended release 24 hr 25 mg PO DAILY 08/03/23 [History Last Taken Unknown] Allergy/AdvReac Type Severity Reaction Status Date / Time nitrofurantoin Allergy Other Verified 05/30/23 11:39 [From Macrobid] Sulfa (Sulfonamide Allergy Hives Verified 05/30/23 11:39 Antibiotics) [id number]-[id number] Reductase AdvReac Mild WEAKNESS Verified 05/30/23 11:39 Inhibitor Surgical History (Updated 08/03/23 @ 11:44 by Margie Taylor) History of cholecystectomy History of hysterectomy Hx of heart artery stent S/P hip replacement Social History Smoking Status: Never smoker ROS <REGINALDO Justice - Last Filed: 08/03/23 15:32> ROS ED Constitutional Constitutional ED: Denies chills or fever(s) Eyes Eyes: Denies blurry vision Cardiovascular Cardiovascular: Denies chest pain or palpitations Respiratory/Chest Respiratory/Chest: Reports dyspnea on exertion; Denies cough Gastrointestinal Gastrointestinal: Denies abdominal pain, nausea or vomiting Musculoskeletal Musculoskeletal: Denies arthralgias or myalgias Integumentary Denies rash Neurologic Neurologic: Denies weakness EXAM <REGINALDO Justice - Last Filed: 08/03/23 15:32> Physical Exam Const Vital Signs: 08/03/23 11:28 08/03/23 11:40 08/03/23 11:50 Temperature 97.2 F L Temperature Source Temporal Pulse Rate 71 89 Respiratory Rate 19 H 19 H Respiratory Effort Normal Blood Pressure 122/83 H Blood Pressure Mean 96 Pulse Ox 98 100 Oxygen Delivery Method Room Air Room Air 08/03/23 11:57 08/03/23 12:00 08/03/23 13:00 Temperature 97.6 F L Temperature Source Temporal Pulse Rate 95 130 H 73 Respiratory Rate 14 18 14 Respiratory Effort Blood Pressure 102/59 L 113/85 H 121/94 H Blood Pressure Mean 73 94 103 Pulse Ox 100 100 100 Oxygen Delivery Method Room Air Room Air 08/03/23 14:14 08/03/23 14:35 Temperature 98 F 97.9 F Temperature Source Oral Pulse Rate 75 76 Respiratory Rate 15 16 Respiratory Effort Blood Pressure 111/76 117/62 Blood Pressure Mean 87 80 Pulse Ox 98 98 Oxygen Delivery Method Room Air Positive well nourished, well developed and no apparent distress General Appearance ED: well developed HEENT Reports normocephalic and head/scalp atraumatic Mouth ED: Yes moist mucous membranes normal Eyes PERRL and EOMs intact bilaterally Neck full ROM and supple Chest Wall inspection of chest normal Resp normal respiratory effort and clear to auscultation bilaterally Cardio Rate: tachycardic Rhythm: abnormal rhythm irregularly irregular GI soft to palpation, non-tender, non-distended and no masses Back/Spine normal ROM and normal to inspection Extremity normal to inspection and full ROM Neuro oriented x3, CN's II-XII intact bilaterally, moves all extremities, no focal motor deficits and no sensory deficits noted Sensorium / Orientation: awake and alert Psych mental status grossly normal and thought process normal Skin no rashes or lesions noted and no wounds <Dr. Xavier Buck MD - Last Filed: 08/03/23 13:46> Physical Exam Const Vital Signs: 08/03/23 11:28 08/03/23 11:40 08/03/23 11:50 Temperature 97.2 F L Temperature Source Temporal Pulse Rate 71 89 Respiratory Rate 19 H 19 H Respiratory Effort Normal Blood Pressure 122/83 H Blood Pressure Mean 96 Pulse Ox 98 100 Oxygen Delivery Method Room Air Room Air 08/03/23 11:57 08/03/23 12:00 08/03/23 13:00 Temperature 97.6 F L Temperature Source Temporal Pulse Rate 95 130 H 73 Respiratory Rate 14 18 14 Respiratory Effort Blood Pressure 102/59 L 113/85 H 121/94 H Blood Pressure Mean 73 94 103 Pulse Ox 100 100 100 Oxygen Delivery Method Room Air Room Air 08/03/23 14:14 08/03/23 14:35 Temperature 98 F 97.9 F Temperature Source Oral Pulse Rate 75 76 Respiratory Rate 15 16 Respiratory Effort Blood Pressure 111/76 117/62 Blood Pressure Mean 87 80 Pulse Ox 98 98 Oxygen Delivery Method Room Air MDM <REGINALDO Justice - Last Filed: 08/03/23 15:32> [facility] Narrative Medical decision making narrative: Patient presenting today due to new onset A-fib RVR. She was at cardiac rehab and when they hooked her up to the monitor they noticed that she was tachycardic and in A-fib. No previous history of A-fib. She has been intermittently lightheaded and fatigued over the past few weeks and was supposed to start a Holter monitor today. Initially she is tachycardic with heart rate in the 140s, EKG shows atrial fibrillation RVR. She was given a 20 mg IV dose of Cardizem, cardiac labs obtained. On reexamination she is still tachycardic but then spontaneously converted to sinus rhythm, heart rate has remained in the 70s bpm and she has remained in sinus rhythm. The attending did speak with her television operator, they recommend putting patient on Eliquis and Cardizem CD. They want her to take the aspirin, Plavix, and Eliquis at the same time for the next 4 days and then after 4 days discontinue the aspirin. This has been communicated to the patient. return instructions given and she will be discharged home in stable condition. Lab Data Attestation: I reviewed the patient's lab results. Lab results narrative: Initial troponin 60, repeat troponin 48, platelet count 479, sodium 133, BUN 54, creatinine 2.12 Labs: Laboratory Results - last 24 hr 08/03/23 08/03/23 11:38 13:54 WBC 7.6 RBC 4.58 Hgb 12.1 Hct 39.6 MCV 86.5 MCH 26.4 L MCHC 30.6 L RDW Std Deviation 41.6 RDW Coeff of Dimitris 13.3 Plt Count 479 H MPV 9.1 Immature Gran % (Auto) 0.400 Neut % (Auto) 44.8 L Lymph % (Auto) 40.5 [place] % (Auto) 10.2 H Eos % (Auto) 3.0 Baso % (Auto) 1.1 H Absolute Neuts (auto) 3.4 Absolute Lymphs (auto) 3.07 Nucleated RBC % 0 Sodium 133 L Potassium 4.9 Chloride 102 Carbon Dioxide 24.0 Anion Gap 7 BUN 54 H Creatinine 2.12 H Est GFR (MDRD) Af Amer 29 L Est GFR (MDRD) Non-Af 24 L BUN/Creatinine Ratio 25.5 H Glucose 127 H Calcium 10.5 H Troponin I High Sens 60 H 48 <Dr. Xavier Buck MD - Last Filed: 08/03/23 13:46> [facility] Lab Data Labs: Laboratory Results - last 24 hr 08/03/23 08/03/23 11:38 13:54 WBC 7.6 RBC 4.58 Hgb 12.1 Hct 39.6 MCV 86.5 MCH 26.4 L MCHC 30.6 L RDW Std Deviation 41.6 RDW Coeff of Dimitris 13.3 Plt Count 479 H MPV 9.1 Immature Gran % (Auto) 0.400 Neut % (Auto) 44.8 L Lymph % (Auto) 40.5 [place] % (Auto) 10.2 H Eos % (Auto) 3.0 Baso % (Auto) 1.1 H Absolute Neuts (auto) 3.4 Absolute Lymphs (auto) 3.07 Nucleated RBC % 0 Sodium 133 L Potassium 4.9 Chloride 102 Carbon Dioxide 24.0 Anion Gap 7 BUN 54 H Creatinine 2.12 H Est GFR (MDRD) Af Amer 29 L Est GFR (MDRD) Non-Af 24 L BUN/Creatinine Ratio 25.5 H Glucose 127 H Calcium 10.5 H Troponin I High Sens 60 H 48 EKG Initial EKG: Attestation: I personally reviewed and interpreted this EKG as follows: Interpretation: No Acute Injury Pattern and Atrial Fibrillation (w/ RVR) Prior EKG tracings: available for review Prior: Changed Follow-up EKG: Attestation: I personally reviewed and interpreted this EKG as follows: Interpretation: Sinus Rhythm and No Acute Injury Pattern Comments: PVCs converted to NSR Management Discussion w/another healthcare provider: Phlebotomy Instructor Treatment and Re-Evaluation Comments:: I have personally performed a face to face assessment of the patient and have reviewed the ROCÍO Note. I performed a substantive portion of the visit including all aspects of the following. My russell findings include: History is stents about a month ago, has been having episodes of fatigue occasional dyspnea occasional palpitations since. Today in cardiac rehab seem to be in A-fib so sent here. No chest pain. No syncope or near syncope. Has felt tired so her metoprolol was discontinued 2 days ago thinking that may be the etiology. Exam is heart irregularly irregular and tachycardic. Otherwise exam benign. No peripheral edema, lungs clear, conversive in full sentences and well-appearing. Medical Decison Making EKG consistent with rapid narrow complex atrial fibrillation. Labs noted, we gave her Cardizem and did not slow her down very much so we went to give her another dose and she apparently converted and feels better. Repeat EKG shows PVCs but sinus rhythm. Will discuss with cardiology for follow-up plans but now we feel we can discharge her home with AV naman carmita prescription as directed by cardiology, she sees Dr. Kina Pearson at [facility]. Other additions or changes: [None] Discharge Plan Triage Chief Complaint: Palpitations ED Midlevel Provider: Sherry Soto ED Provider: Xavier Buck Dx/Rx/DC Orders Clinical Impression: Paroxysmal atrial fibrillation with RVR Instructions: Anticoagulants, ED AFIB Prescriptions: New diltiazem HCl [Cardizem CD] 120 mg capsule,extended release 24hr 120 mg PO DAILY Qty: 30 0RF Eliquis 5 mg tablet 5 mg PO BID 30 Days Qty: 60 0RF No Action metoprolol succinate 25 mg tablet extended release 24 hr 25 mg PO DAILY ezetimibe 10 mg tablet 10 mg PO DAILY Jardiance 10 mg tablet 10 mg PO DAILY Nexletol 180 mg tablet 180 mg PO DAILY clopidogrel 75 mg tablet 75 mg PO DAILY escitalopram oxalate 10 mg tablet 10 mg PO DAILY gabapentin 400 mg capsule 400 mg PO QHS metformin 500 mg tablet extended release 24 hr 500 mg PO DAILY insulin glargine [Lantus Solostar U-100 Insulin] 100 unit/mL (3 mL) insulin pen 28 unit SUBCUT DAILY lisinopril 10 mg tablet 10 mg PO BID Ozempic 0.25 mg or 0.5 mg (2 mg/3 mL) pen injector 0.5 mg SUBCUT SA acetaminophen [Acetaminophen Extra Strength] 500 mg tablet 500 mg PO Q6H PRN (Reason: HIP PAIN ) Patient Comments: PT STATES THAT THEY TYPICALLY TAKE THIS EVERY DAY FOR THEIR HIP PAIN. aspirin [Adult Aspirin Regimen] 81 mg tablet,delayed release (DR/EC) 81 mg PO QHS AllerClear D-24hr 10-240 mg tablet extended release 24 hr 1 tab PO Q24H PRN (Reason: SEASONAL ALLERGIES ) Primary Care Provider: Alphonso Russell Activity Restrictions/Additional Instructions: Follow-up with Dr. Pearson as directed in the office, call for appointment Take your Eliquis, aspirin, and Plavix at the same time daily for the next 4 days. After 4 days, discontinue the aspirin and take the Eliquis and Plavix together. Disposition Disposition: Home, Self Care Discharge Date/Time: 08/03/23 14:38
[2023-08-03 11:59] LABS: Absolute Lymphocyte Count 3.07 X10^3/uL (0.83-4.51); Absolute Neutrophil Count 3.4 X10^3/uL (2.0-7.7); Basophil# 0.08 X10^3/uL; Basophil% 1.1 % (0-1); Eosinophil# 0.23 X10^3/uL; Hematocrit 39.6 % (37-47); Hemoglobin 12.1 g/dL (12.0-15.0); Lymphocyte # 3.07 X10^3/ul (0.83-4.51); Lymphocyte % 40.5 % (19-41); Mean Corp Hgb Conc 30.6 g/dL (32-36); Mean Corpuscular Hgb 26.4 pg (27.0-32.0); Mean Corpuscular Volume 86.5 fL (81-99); Mean Platelet Vol. 9.1 fl (6.2-12.0); Monocyte# 0.77 X10^3/uL; Monocyte% 10.2 % (0-10); NRBC Flagged by Analyzer 0 % (0-5); Neutrophil % 44.8 % (47-70); Platelet Count 479 K/mm3 (150-450); RBC Distribution Width CV 13.3 % (11.6-14.6); RBC Distribution Width SD 41.6 fl (35.1-43.9); Red Blood Count 4.58 M/mm3 (4.2-5.4); White Blood Count 7.6 K/mm3 (4.4-11.0)
[2023-08-03 12:09] LABS: Anion Gap 7 (5-15); BUN 54 mg/dL (7-18); BUN/Creat Ratio 25.5 RATIO (10-20); Calcium,Total 10.5 mg/dL (8.5-10.1); Chloride 102 mmol/L (98-107); Creatinine, Serum 2.12 mg/dL (0.55-1.02); EST Glomerular Filtration Rate 24 mL/min (>60); Est Glom Filt Rate - Afr Amer 29 mL/min (>60); Glucose 127 mg/dL (74-106); Potassium 4.9 mmol/L (3.5-5.1); Sodium Level 133 mmol/L (136-145); Troponin-I HS (w/2H Reflex) 60 pg/mL (3.0-54.0)
--- NOTE | 2023-08-03 13:17 | EKG12_ITS ---
Test Reason : REPEAT Blood Pressure : / mmHG Vent. Rate : 067 BPM Atrial Rate : 070 BPM P-R Int : 160 ms QRS Dur : 072 ms QT Int : 424 ms P-R-T Axes : 046 006 118 degrees QTc Int : 448 ms Sinus rhythm with frequent Premature ventricular complexes ST & T wave abnormality, consider lateral ischemia Abnormal ECG Confirmed by WILTON COLEMAN, TARIQ ([id number]), school photograph editor BRIANNA MCLEAN ([id number]) on 08/06/2023 11:36:09 AM Referred By: Confirmed By:TARIQ NÚÑEZ MD
--- NOTE | 2023-08-03 13:17 | CHAPLAIN ---
Type of Pastoral Visit _x__ Initial Visit ___ Follow-up Visit ___ On-call Visit ___ General Patient Visit ___ Spiritual Assessment ___ Family Conference ___ Bereavement ___ Rapid Response ___ Code Blue ___ Other (describe below) Pastoral Care Referral From _x__ Patient ___ Family ___ Nurse ___ Physician ___ Professor Of Law ___ Breaker Tender ___ Other (describe below) Sacrament/Intervention _x__ Active listening ___ Anointing ___ Protestant ___ Bereavement ___ Communion _x__ Lexii exploration ___ ___ Life review _x__ Prayer ___ Reconciliation ___ Sacrament of Sick _x__ Supportive presence ___ Wedding ___ Other (describe below) Pastoral Comments patient had been sent from cardiac rehab and was without family members; pt asked specifically for this credit risk manager to come to her room; supportive presence, affirmation, prayer, and offer of ongoing support given; RN had contacted her daughter; pt has messaged her spouse and son
[2023-08-03] MEDS: 0.9% Normal Saline (1000mL) 1,000 ML 999 ML IV (13:21)
[2023-08-03 13:49] LABS: Reflex Troponin-HS? (from REC) Y
[2023-08-03 14:32] LABS: Troponin-I HS 48 pg/mL (3.0-54.0)
== END 2023-08-03 14:38 | disposition home or self-care (01) ==
PROVIDERS: Physician Assistant; Emergency Provider Emergency Medicine; PCP Internal Medicine; Visit Provider Emergency Medicine
DX: I48.0 Paroxysmal atrial fibrillation (principal); E11.9 Type 2 diabetes mellitus without complications; Z79.4 Long term (current) use of insulin; I25.10 Atherosclerotic heart disease of native coronary artery without angina pectoris; E78.5 Hyperlipidemia, unspecified; I10 Essential (primary) hypertension; Z79.899 Other long term (current) drug therapy; Z79.82 Long term (current) use of aspirin; Z95.5 Presence of coronary angioplasty implant and graft; Z79.02 Long term (current) use of antithrombotics/antiplatelets; Z79.84 Long term (current) use of oral hypoglycemic drugs; Z90.710 Acquired absence of both cervix and uterus; Z90.49 Acquired absence of other specified parts of digestive tract
CPT/HCPCS: 80048; 84484; 85025; 93005; 96360; 99284

== ENCOUNTER 2023-08-31 11:15 | Outpatient (RCR) | payer MEDICARE, SELFPAY ==
[2023-07-13 11:10] VITALS: BMI 24.5
--- NOTE | 2023-08-10 08:17 | PCM.CR.ITP ---
Exercise - Initial Assessment Visit Session #:: 11 Comments:: 08/03/2023 patient sent to emergency room for chest pain evaluation Nutrition - Initial Assessment Weight Mgt (Other Care) Height: 5 ft 5 in Weight:: 149 lb BMI: 24.7 Psychosocial - Initial Assess Target Goals Target Goals Referral to Behavioral Health PS - Interventions: Yes: Attend Stress Management Classes and No: Referral to Behavioral Health if PHQ-9 score >9:, No: Referral to [facility] and No: Referral to Physician if PHQ-9 if score is 5-9: Patient Health Questionnaire PHQ-9 Screening 30-Day Re-eval Assessment: 1. Little interest or pleasure in doing things: Not at all 2. Feeling down, depressed, or hopeless: Not at all 3. Trouble falling or staying asleep, or sleeping too much: Not at all 4. Feeling tired or having little energy: Several days 5. Poor appetite or overeating: Not at all 6. Feeling bad about yourself -- or that you are a failure or have let yourself or your family down: Not at all 7. Trouble concentrating on things, such as reading the newspaper or watching television: Not at all 8. Moving or speaking so slowly that other people could have noticed. Or the opposite - being so fidgety or restless that you have been moving around a lot more than usual: Not at all 9. Thoughts that you would be better off , or of hurting yourself in some way: Not at all How difficult have these problems made it for you to do your work, take care of things at home, or get along with other people?: Not difficult at all Total Score: 1 Self-Efficacy 6-Item Scale 30-Day Re-eval Assessment: We would like to know how confident you are in doing certain activities. Please select your confidence level for: Fatigue Select Number: 5 Physical Discomfort or Pain Select Number: 4 Emotional Distress Select Number: 4 Other Symptoms or Health Problems Select Number: 5 Different Tasks and Activities Select Number: 4 Medication Select Number: 5 Total Score:: 4 Nutrition Survey Nutrition Survey Instructions Scoring Instructions Exercise - 30-day Assessment Visit Date of Eval: 08/10/23 Session #:: 8 Comments:: 08/03/2023 patient sent to emergency room for chest pain evaluation Physician Prescribed Exercise Modalities: Treadmill, Airdyne and NuStep Frequency: 3x/week for 12 weeks [36 sessions] Intensity: 60-80% of age predicted maximum heart rate reserve Duration: 30 - 45 minutes Current METSs:: 4.5 Target Heart Rate:: Rest +25 BPM Current RPE:: 12-13 Maximum Excercise HR:: 100 Resting Blood Pressure: 124/62 Maximum Exercise Blood Pressure: 136/58 EKG Type: NSR to sinus tach w/rare PAC, PVCs vs. PJCs Outcomes & Goals Goals:: Verbalizes understanding of THR, RPE & goal METS by session 6, Documents in home exercise log/reports 30 min aerobic 5 day/wk by DC and Demonstrates accurate pulse taking by DC Intervention & Plan Exercise Program Goals: Instruct on personal THR & RPE, Instruct on MET level & personal MET goal, Show patient to take own pulse /validate performance until accurate and Instruct on home exercise 30-day Reassessments 30 day Reassessments:: Progressing Physical Activity Home Exercise Physical Activity - Home Exercise: Safe Exercise, Warm-up, Self-monitoring, Cool-Down, Home Exercise > 30 min Daily and Sitting Time <3 hours/daily Outcomes & Goals Outcomes/Goals: Demonstrates correct Warm-up/exercise Cool-Down (S3) if = 2.5 METs, Verbalizes symptoms of exercise intolerance by Session 3 (S3) and Demonstrate safe equipment use (S3) & follows exercise prescrition (6) Intervention & Plan Plan/Intervention: Instruct warm-up & cool-down if exercising at > 2 METs, Instruct on symptoms of exercise intolerance & actions to take, Instruct & monitor on saf and Assess intial functional capacity & safety risk 30-day Reassessments 30 day Reassessments:: Progressing Nutrition - 30-Day Assessment Program Goals Nutrition Program Goals Patient has diagnosis of Hyperlipidemia (ICD E78)?: Yes Visit Date of Eval: 08/10/23 Session #:: 8 Cholesterol/Lipids (Other Core Measures) Determine presence & major risk factors that modify LDL goal: Hypertension or hypertensive medication and Age men > 45 years; women >/= 55 years Outcomes/Goals: Pt IDs own risk factors & lifestyle modifications by Session 10, Verbalizes symptoms of angina & response by session 3. and Pt independently manages Intervention/Plan: Instruct on personal lipid levels & lipid goals/NCEP guidelines and Instruct on cholesterol Referral to dietitian:: Yes 30-day Reassessments:: Progressing Diabetes (Other Core Measures) Diabetes Type: Diagnosis Type II ICD-10 E11 Insulin dependent injection/pump?: Yes Non-Insulin Dependent?: Yes Do you monitor your blood sugar at home?: Yes Referral to Diabetic Clinic:: Yes Outcomes/Goals:: Able to state symptoms of, Able to state and Able to state Intervention/Plan:: Instruct on, Refer to and Instruct on 30-day Reassessments:: Progressing Weight Mgt (Other Care) Not Applicable: Yes Height: 5 ft 5 in Weight:: 149 lb BMI: 24.7 Diagnosis Overweight/Obesity BMI> 30% ICD-10 E66: No Diagnosis High BMI/Morbid Obesity BMI> 35% ICD-10 Z68: No Outcomes/Goals: Pt sets, maintains & shows weight loss goal & trend during rehab Intervention/Plan: Instruct on ideal BMI & set weight loss goal w/patient 30 day Reassessments:: Progressing Healthy Eating Habits Will attend diet classes:: Yes Outcomes/Goals:: Consume diet rich in vegs,fruits,whole grain/high fiber,fish,lean meat and Limit sat/trans fats,cholesterol & added salts & sugars Intervention/Plan:: Assess current eating habits 30-day Reassessments:: Progressing Education Gave educational materials for:: Signs & symptoms of hypoglycemia, Signs & symptoms of hyperglycemia, Relate diabetes to coronary artery disease and Healthy eating Nutrition - 60-Day Assessment Weight Mgt (Other Care) Height: 5 ft 5 in Weight:: 149 lb BMI: 24.7 Core - 30-Day Assessment Visit Date of Eval: 08/10/23 Session #:: 11 Medication Compliance Preventative Medication(s):: Aspirin, Clopidogrel/P2Y12 inhibit, Statin/lipid, Beta carmita and Eliquis H/O mental health issues: depression, anxiety, or addiction?: Yes Doesn?t believe in the benefits of treatment?: No Believes medications are unnecessary or harmful?: No Has a concern about medication side effects?: No Expresses concern over the cost of medications?: No Outcomes/Goals: Verbalizes medications,desired effect & common side effects @ DC, Pt self-reports following medication regimen and Keeps card in wallet w/medications listed by DC Interventions/plans: Instruct on medication effects & side effects, Review medication list w/patient every two weeks and Instruct importance of taking meds as ordered & assist problem solving 30-day Reassessments:: Progressing Tobacco Use Tobacco Use: Non-smoker Hypertension Hypertension Diagnosis:: Hypertension ICD-10 I10 Resting Blood Pressure:: 124/62 Citizen Of [place] Heart Association Hypertension Guidelines Peak Exercise Blood Pressure:: 136/58 Outcomes/Goals: Able to verbalize/achieve optimal blood pressure <130/80 and Incorporates diet changes & exercise for blood pressure control by DC Interventions/plan: Instruct on optimal blood pressure, hypertension & medications and Instruct on effects of sodium, alcohol, stress, exercise &hypertension 30 day Reassessments:: Met Tobacco Cessation Referral Smoking Cessation Referral:: No Individual Education/Counseling:: No Education Schedule Given:: Yes Psychosocial - 30-Day Assess VIsit Date of Eval: 08/10/23 Session #:: 11 Not Applicable: Yes History of previous Mental disease:: No Target Goals Target Goals Psychosocial Test Tool Used:: PHQ-9 Questionnaire phq-9 Severity Referral to Behavioral Health PS - Interventions: Yes: Attend Stress Management Classes and No: Referral to Behavioral Health if PHQ-9 score >9:, No: Referral to [facility] and No: Referral to Physician if PHQ-9 if score is 5-9: Outcomes/Goals: See list Psychosocial Outcomes/Goals:: ID's personal stressors & 2 strategies to manage stress by discharge Intervention/Plan: See List Interventions/Plan:: Assess stressors,coping strategies & signs of derpression on admission, Instruct/assist pt to develop coping & personal stress Mgt strategies, Instruct patient to recognize signs & symptoms of depression and Instruct patient to recog 30-day Reassessments: 30 day Reassessments:: Progressing Psychosocial - 60-Day Assess Target Goals Target Goals Referral to Behavioral Health PS - Interventions: Yes: Attend Stress Management Classes and No: Referral to Behavioral Health if PHQ-9 score >9:, No: Referral to [facility] and No: Referral to Physician if PHQ-9 if score is 5-9: Outcomes/Goals: See list Psychosocial Outcomes/Goals:: ID's personal stressors & 2 strategies to manage stress by discharge Psychosocial - 90-Day Assess Target Goals Target Goals Referral to Behavioral Health PS - Interventions: Yes: Attend Stress Management Classes and No: Referral to Behavioral Health if PHQ-9 score >9:, No: Referral to [facility] and No: Referral to Physician if PHQ-9 if score is 5-9: Psychosocial - Final Assessmen Target Goals Target Goals Referral to Behavioral Health PS - Interventions: Yes: Attend Stress Management Classes and No: Referral to Behavioral Health if PHQ-9 score >9:, No: Referral to [facility] and No: Referral to Physician if PHQ-9 if score is 5-9: Nutrition - 90-Day Assessment Weight Mgt (Other Care) Height: 5 ft 5 in Weight:: 149 lb BMI: 24.7 Nutrition - Final Assessment Weight Mgt (Other Care) Height: 5 ft 5 in Weight:: 149 lb BMI: 24.7
[2023-08-10 08:23] VITALS: BP 124/62
[2023-08-10 08:29] VITALS: BP 124/62; BMI 24.7
== END 2023-08-31 23:59 ==
LOC: CR 11:15
PROVIDERS: PCP Internal Medicine
DX: I25.10 Atherosclerotic heart disease of native coronary artery without angina pectoris (principal); E78.2 Mixed hyperlipidemia; I12.9 Hypertensive chronic kidney disease with stage 1 through stage 4 chronic kidney disease, or unspecified chronic kidney disease; N18.32 Chronic kidney disease, stage 3b; I21.4 Non-ST elevation (NSTEMI) myocardial infarction; E11.22 Type 2 diabetes mellitus with diabetic chronic kidney disease
CPT/HCPCS: 93798

== ENCOUNTER 2023-09-28 11:30 | Outpatient (RCR) | payer MEDICARE, SELFPAY ==
[2023-08-10 08:29] VITALS: BMI 24.7
[2023-09-01 00:50] VITALS: BP 124/62
--- NOTE | 2023-09-12 08:20 | PCM.CR.ITP ---
Exercise - Initial Assessment Physician Prescribed Exercise Modalities: Treadmill, Schwinn Airdyne AD-7 and SciFit Pro-II Ergometer Nutrition - Initial Assessment Weight Mgt (Other Care) Height: 5 ft Weight:: 182 lb 8 oz BMI: 35.6 Psychosocial - Initial Assess Target Goals Target Goals Referral to Behavioral Health PS - Interventions: Yes: Attend Stress Management Classes and No: Referral to Behavioral Health if PHQ-9 score >9:, No: Referral to [facility] and No: Referral to Physician if PHQ-9 if score is 5-9: Patient Health Questionnaire PHQ-9 Screening 60-Day Re-eval Assessment: 1. Little interest or pleasure in doing things: Not at all 2. Feeling down, depressed, or hopeless: Not at all 3. Trouble falling or staying asleep, or sleeping too much: Not at all 4. Feeling tired or having little energy: Not at all 5. Poor appetite or overeating: Not at all 6. Feeling bad about yourself -- or that you are a failure or have let yourself or your family down: Not at all 7. Trouble concentrating on things, such as reading the newspaper or watching television: Not at all 8. Moving or speaking so slowly that other people could have noticed. Or the opposite - being so fidgety or restless that you have been moving around a lot more than usual: Not at all 9. Thoughts that you would be better off , or of hurting yourself in some way: Not at all How difficult have these problems made it for you to do your work, take care of things at home, or get along with other people?: Not difficult at all Total Score: 0 Self-Efficacy 6-Item Scale 60-Day Re-eval Assessment: We would like to know how confident you are in doing certain activities. Please select your confidence level for: Fatigue Select Number: 8 Physical Discomfort or Pain Select Number: 7 Emotional Distress Select Number: 7 Other Symptoms or Health Problems Select Number: 8 Different Tasks and Activities Select Number: 7 Medication Select Number: 8 Total Score:: 7 Nutrition Survey Nutrition Survey Instructions Scoring Instructions Exercise - 30-day Assessment Physician Prescribed Exercise Modalities: Treadmill, Schwinn Airdyne AD-7 and SciFit Pro-II Ergometer Exercise - 60-day Assessment Visit Date of Eval: 06/12/24 Session #:: 21 Physician Prescribed Exercise Modalities: Treadmill, Schwinn Airdyne AD-7 and SciFit Pro-II Ergometer Frequency: 3x/week for 12 weeks [36 sessions] Intensity: 60-80% of age predicted maximum heart rate reserve Duration: 30 - 45 minutes Current METSs:: 2.5; unable to increase patient due to rhythm. Target Heart Rate:: 95-109 Current RPE:: 12 Resting Blood Pressure: 118/80 Maximum Exercise Blood Pressure: 148/82 EKG Type: Atrial paced with occasional PVCs, runs of ectopic atrial tachycardia vs. a Current Physical Activity or Exercising minutes: 40:56 Outcomes & Goals Goals:: Verbalizes understanding of THR, RPE & goal METS by session 6, Documents in home exercise log/reports 30 min aerobic 5 day/wk by DC and Demonstrates accurate pulse taking by DC Intervention & Plan Exercise Program Goals: Instruct on personal THR & RPE, Instruct on MET level & personal MET goal, Show patient to take own pulse /validate performance until accurate and Instruct on home exercise 30-day Reassessments 30 day Reassessments:: Met Physical Activity Home Exercise Physical Activity - Home Exercise: Safe Exercise, Warm-up, Self-monitoring, Cool-Down, Home Exercise > 30 min Daily and Sitting Time <3 hours/daily Outcomes & Goals Outcomes/Goals: Demonstrates correct Warm-up/exercise Cool-Down (S3) if = 2.5 METs, Verbalizes symptoms of exercise intolerance by Session 3 (S3) and Demonstrate safe equipment use (S3) & follows exercise prescrition (6) Intervention & Plan Plan/Intervention: Instruct warm-up & cool-down if exercising at > 2 METs, Instruct on symptoms of exercise intolerance & actions to take, Instruct & monitor on saf and Assess intial functional capacity & safety risk 30-day Reassessments 30 day Reassessments:: Met Exercise - 90-day Assessment Physician Prescribed Exercise Modalities: Treadmill, Schwinn Airdyne AD-7 and SciFit Pro-II Ergometer Exercise - Final/Discharge Physician Prescribed Exercise Modalities: Treadmill, Schwinn Airdyne AD-7 and SciFit Pro-II Ergometer Nutrition - 30-Day Assessment Weight Mgt (Other Care) Height: 5 ft Weight:: 182 lb 8 oz BMI: 35.6 Nutrition - 60-Day Assessment Program Goals Nutrition Program Goals Patient has diagnosis of Hyperlipidemia (ICD E78)?: Yes Visit Date of Eval: 09/12/23 Session #:: 21 Cholesterol/Lipids (Other Core Measures) Total Triglycerides (mg/dL): 0 (no lipid profile available) Determine presence & major risk factors that modify LDL goal: Hypertension or hypertensive medication and Age men > 45 years; women >/= 55 years Outcomes/Goals: Pt IDs own risk factors & lifestyle modifications by Session 10, Verbalizes symptoms of angina & response by session 3. and Pt independently manages Intervention/Plan: Instruct on personal lipid levels & lipid goals/NCEP guidelines and Instruct on cholesterol Referral to dietitian:: Yes 30-day Reassessments:: Progressing Diabetes (Other Core Measures) Diabetes Type: Not Applicable Weight Mgt (Other Care) Height: 5 ft Weight:: 182 lb 8 oz BMI: 35.6 Diagnosis Overweight/Obesity BMI> 30% ICD-10 E66: Yes Diagnosis High BMI/Morbid Obesity BMI> 35% ICD-10 Z68: Yes Outcomes/Goals: Pt sets, maintains & shows weight loss goal & trend during rehab Intervention/Plan: Instruct on ideal BMI & set weight loss goal w/patient, Assist pt to ID & incorporate diet changes for weight loss by S9, Refer to Structured Weight Loss program as appropriate and Encourage goal of using 250-300dcal per session for weight loss 30 day Reassessments:: Not Met Healthy Eating Habits Will attend diet classes:: Yes Outcomes/Goals:: Consume diet rich in vegs,fruits,whole grain/high fiber,fish,lean meat and Limit sat/trans fats,cholesterol & added salts & sugars Intervention/Plan:: Assess current eating habits 30-day Reassessments:: Progressing Education Gave educational materials for:: Healthy eating Core - 60-Day Assessment Medication Compliance Preventative Medication(s):: Aspirin, Clopidogrel/P2Y12 inhibit, Statin/lipid and Beta carmita H/O mental health issues: depression, anxiety, or addiction?: No Doesn?t believe in the benefits of treatment?: No Believes medications are unnecessary or harmful?: No Has a concern about medication side effects?: No Expresses concern over the cost of medications?: No Outcomes/Goals: Verbalizes medications,desired effect & common side effects @ DC, Pt self-reports following medication regimen and Keeps card in wallet w/medications listed by DC Interventions/plans: Instruct on medication effects & side effects, Review medication list w/patient every two weeks and Instruct importance of taking meds as ordered & assist problem solving 30-day Reassessments:: Met Tobacco Use Tobacco Use: Non-smoker Do you use smokeless tobacco?: No 30-day Reassessments:: Met Hypertension Hypertension Diagnosis:: Hypertension ICD-10 I10 Resting Blood Pressure:: 118/80 [place] [employer] Hypertension Guidelines Peak Exercise Blood Pressure:: 148/82 Outcomes/Goals: Able to verbalize/achieve optimal blood pressure <130/80 and Incorporates diet changes & exercise for blood pressure control by DC Interventions/plan: Instruct on optimal blood pressure, hypertension & medications and Instruct on effects of sodium, alcohol, stress, exercise &hypertension 30 day Reassessments:: Met Tobacco Cessation Referral Smoking Cessation Referral:: No Individual Education/Counseling:: No Education Schedule Given:: Yes Psychosocial - 30-Day Assess Target Goals Target Goals Referral to Behavioral Health PS - Interventions: Yes: Attend Stress Management Classes and No: Referral to Behavioral Health if PHQ-9 score >9:, No: Referral to [facility] and No: Referral to Physician if PHQ-9 if score is 5-9: Outcomes/Goals: See list Psychosocial Outcomes/Goals:: ID's personal stressors & 2 strategies to manage stress by discharge Psychosocial - 60-Day Assess VIsit Date of Eval: 09/12/23 Session #:: 21 Not Applicable: Yes History of previous Mental disease:: No Target Goals Target Goals Psychosocial Test Tool Used:: PHQ-9 Questionnaire phq-9 Severity Referral to Behavioral Health PS - Interventions: Yes: Attend Stress Management Classes and No: Referral to Behavioral Health if PHQ-9 score >9:, No: Referral to [facility] and No: Referral to Physician if PHQ-9 if score is 5-9: Outcomes/Goals: See list Psychosocial Outcomes/Goals:: ID's personal stressors & 2 strategies to manage stress by discharge Intervention/Plan: See List Interventions/Plan:: Assess stressors,coping strategies & signs of derpression on admission, Instruct/assist pt to develop coping & personal stress Mgt strategies, Instruct patient to recognize signs & symptoms of depression and Instruct patient to recog 30-day Reassessments: 30 day Reassessments:: Progressing Psychosocial - 90-Day Assess Target Goals Target Goals Referral to Behavioral Health PS - Interventions: Yes: Attend Stress Management Classes and No: Referral to Behavioral Health if PHQ-9 score >9:, No: Referral to [facility] and No: Referral to Physician if PHQ-9 if score is 5-9: Psychosocial - Final Assessmen Target Goals Target Goals Referral to Behavioral Health PS - Interventions: Yes: Attend Stress Management Classes and No: Referral to Behavioral Health if PHQ-9 score >9:, No: Referral to [facility] and No: Referral to Physician if PHQ-9 if score is 5-9: Nutrition - 90-Day Assessment Weight Mgt (Other Care) Height: 5 ft Weight:: 182 lb 8 oz BMI: 35.6 Nutrition - Final Assessment Weight Mgt (Other Care) Height: 5 ft Weight:: 182 lb 8 oz BMI: 35.6
[2023-09-12 08:25] VITALS: BP 118/80
[2023-09-12 08:31] VITALS: BP 118/80; BMI 35.6
== END 2023-09-30 23:59 ==
LOC: CR 11:30
PROVIDERS: PCP Internal Medicine
DX: I25.10 Atherosclerotic heart disease of native coronary artery without angina pectoris (principal); E78.2 Mixed hyperlipidemia; E11.22 Type 2 diabetes mellitus with diabetic chronic kidney disease; I12.9 Hypertensive chronic kidney disease with stage 1 through stage 4 chronic kidney disease, or unspecified chronic kidney disease; N18.32 Chronic kidney disease, stage 3b; I21.4 Non-ST elevation (NSTEMI) myocardial infarction
CPT/HCPCS: 93798

== ENCOUNTER 2023-10-22 11:30 | Outpatient (RCR) | payer MEDICARE, SELFPAY ==
[2023-09-12 08:31] VITALS: BMI 35.6
[2023-10-01 00:13] VITALS: BP 118/80; BP 124/62
--- NOTE | 2023-10-12 05:52 | PCM.CR.ITP ---
Exercise - Initial Assessment Physician Prescribed Exercise Modalities: Treadmill, SciFit Stepper and SciFit Pro-II Ergometer Nutrition - Initial Assessment Weight Mgt (Other Care) Height: 5 ft 5 in Weight:: 149 lb 8 oz BMI: 24.8 Psychosocial - Initial Assess Target Goals Target Goals Referral to Behavioral Health PS - Interventions: Yes: Attend Stress Management Classes and No: Referral to Behavioral Health if PHQ-9 score >9:, No: Referral to [facility] and No: Referral to Physician if PHQ-9 if score is 5-9: Patient Health Questionnaire PHQ-9 Screening 90-Day Re-eval Assessment: 1. Little interest or pleasure in doing things: Not at all 2. Feeling down, depressed, or hopeless: Not at all 3. Trouble falling or staying asleep, or sleeping too much: Not at all 4. Feeling tired or having little energy: Not at all 5. Poor appetite or overeating: Not at all 6. Feeling bad about yourself -- or that you are a failure or have let yourself or your family down: Not at all 7. Trouble concentrating on things, such as reading the newspaper or watching television: Not at all 8. Moving or speaking so slowly that other people could have noticed. Or the opposite - being so fidgety or restless that you have been moving around a lot more than usual: Not at all 9. Thoughts that you would be better off , or of hurting yourself in some way: Not at all How difficult have these problems made it for you to do your work, take care of things at home, or get along with other people?: Not difficult at all Total Score: 0 Self-Efficacy 6-Item Scale 90-Day Re-eval Assessment: We would like to know how confident you are in doing certain activities. Please select your confidence level for: Fatigue Select Number: 8 Physical Discomfort or Pain Select Number: 7 Emotional Distress Select Number: 7 Other Symptoms or Health Problems Select Number: 8 Different Tasks and Activities Select Number: 6 Medication Select Number: 7 Total Score:: 7 Nutrition Survey Nutrition Survey Instructions Scoring Instructions Exercise - 30-day Assessment Physician Prescribed Exercise Modalities: Treadmill, SciFit Stepper and SciFit Pro-II Ergometer Exercise - 60-day Assessment Physician Prescribed Exercise Modalities: Treadmill, SciFit Stepper and SciFit Pro-II Ergometer Exercise - 90-day Assessment Visit Date of Eval: 10/12/23 Session #:: 31 Comments:: Patient has only missed 4 scheduled session to date. Physician Prescribed Exercise Modalities: Treadmill, SciFit Stepper and SciFit Pro-II Ergometer Frequency: 3x/week for 12 weeks [36 sessions] Intensity: 60-80% of age predicted maximum heart rate reserve Duration: 30 - 45 minutes Current METSs:: 5.0 Target Heart Rate:: Rest + 25 BPM Current RPE:: 12 Maximum Excercise HR:: 97 Resting Blood Pressure: 112/52 Maximum Exercise Blood Pressure: 124/62 EKG Type: NSR to sinus tach w/rare PVCs & PACs Current Physical Activity or Exercising minutes: 35:20 Outcomes & Goals Goals:: Verbalizes understanding of THR, RPE & goal METS by session 6, Documents in home exercise log/reports 30 min aerobic 5 day/wk by DC and Demonstrates accurate pulse taking by DC Intervention & Plan Exercise Program Goals: Instruct on personal THR & RPE, Instruct on MET level & personal MET goal, Show patient to take own pulse /validate performance until accurate and Instruct on home exercise 30-day Reassessments 30 day Reassessments:: Met Physical Activity Home Exercise Physical Activity - Home Exercise: Safe Exercise, Warm-up, Self-monitoring, Cool-Down, Home Exercise > 30 min Daily and Sitting Time <3 hours/daily Outcomes & Goals Outcomes/Goals: Demonstrates correct Warm-up/exercise Cool-Down (S3) if = 2.5 METs, Verbalizes symptoms of exercise intolerance by Session 3 (S3) and Demonstrate safe equipment use (S3) & follows exercise prescrition (6) Intervention & Plan Plan/Intervention: Instruct warm-up & cool-down if exercising at > 2 METs, Instruct on symptoms of exercise intolerance & actions to take, Instruct & monitor on saf and Assess intial functional capacity & safety risk 30-day Reassessments 30 day Reassessments:: Met Exercise - Final/Discharge Physician Prescribed Exercise Modalities: Treadmill, SciFit Stepper and SciFit Pro-II Ergometer Nutrition - 30-Day Assessment Weight Mgt (Other Care) Height: 5 ft 5 in Weight:: 149 lb 8 oz BMI: 24.8 Nutrition - 60-Day Assessment Weight Mgt (Other Care) Height: 5 ft 5 in Weight:: 149 lb 8 oz BMI: 24.8 Core - 90 Day Assessment Visit Date of Eval: 10/12/23 Session #:: 31 Medication Compliance Preventative Medication(s):: Aspirin, Clopidogrel/P2Y12 inhibit and Beta carmita H/O mental health issues: depression, anxiety, or addiction?: No Doesn?t believe in the benefits of treatment?: No Believes medications are unnecessary or harmful?: No Has a concern about medication side effects?: No Expresses concern over the cost of medications?: No Outcomes/Goals: Verbalizes medications,desired effect & common side effects @ DC, Pt self-reports following medication regimen and Keeps card in wallet w/medications listed by DC Comments:: 10/10/2023 DC'd Cardizem and started Metoprolol 25mg QD. Interventions/plans: Instruct on medication effects & side effects, Review medication list w/patient every two weeks and Instruct importance of taking meds as ordered & assist problem solving 30-day Reassessments:: Met Tobacco Use Tobacco Use: Non-smoker Hypertension Hypertension Diagnosis:: Hypertension ICD-10 I10 Resting Blood Pressure:: 112/52 [place] [employer] Hypertension Guidelines Peak Exercise Blood Pressure:: 124/62 Outcomes/Goals: Able to verbalize/achieve optimal blood pressure <130/80 and Incorporates diet changes & exercise for blood pressure control by DC Interventions/plan: Instruct on optimal blood pressure, hypertension & medications and Instruct on effects of sodium, alcohol, stress, exercise &hypertension 30 day Reassessments:: Met Tobacco Cessation Referral Smoking Cessation Referral:: No Individual Education/Counseling:: Yes (Encourage patient to see Nutritional Services.) Education Schedule Given:: Yes Psychosocial - 30-Day Assess Target Goals Target Goals Referral to Behavioral Health PS - Interventions: Yes: Attend Stress Management Classes and No: Referral to Behavioral Health if PHQ-9 score >9:, No: Referral to [facility] and No: Referral to Physician if PHQ-9 if score is 5-9: Psychosocial - 60-Day Assess Target Goals Target Goals Referral to Behavioral Health PS - Interventions: Yes: Attend Stress Management Classes and No: Referral to Behavioral Health if PHQ-9 score >9:, No: Referral to [facility] and No: Referral to Physician if PHQ-9 if score is 5-9: Psychosocial - 90-Day Assess VIsit Date of Eval: 10/12/23 Session #:: 31 Not Applicable: Yes History of previous Mental disease:: No Target Goals Target Goals Psychosocial Test Tool Used:: PHQ-9 Questionnaire phq-9 Severity Referral to Behavioral Health PS - Interventions: Yes: Attend Stress Management Classes and No: Referral to Behavioral Health if PHQ-9 score >9:, No: Referral to [facility] and No: Referral to Physician if PHQ-9 if score is 5-9: Outcomes/Goals: See list Psychosocial Outcomes/Goals:: ID's personal stressors & 2 strategies to manage stress by discharge Intervention/Plan: See List Interventions/Plan:: Instruct/assist pt to develop coping & personal stress Mgt strategies, Instruct patient to recognize signs & symptoms of depression and Instruct patient to recog 30-day Reassessments: 30 day Reassessments:: Met Psychosocial - Final Assessmen Target Goals Target Goals Referral to Behavioral Health PS - Interventions: Yes: Attend Stress Management Classes and No: Referral to Behavioral Health if PHQ-9 score >9:, No: Referral to [facility] and No: Referral to Physician if PHQ-9 if score is 5-9: Nutrition - 90-Day Assessment Program Goals Nutrition Program Goals Patient has diagnosis of Hyperlipidemia (ICD E78)?: Yes Visit Date of Eval: 10/12/23 Session #:: 31 Cholesterol/Lipids (Other Core Measures) Triglycerides (mg/dL): 0 (No lipid profile available) Determine presence & major risk factors that modify LDL goal: Hypertension or hypertensive medication and Age men > 45 years; women >/= 55 years Outcomes/Goals: Pt IDs own risk factors & lifestyle modifications by Session 10, Verbalizes symptoms of angina & response by session 3. and Pt independently manages Intervention/Plan: Instruct on personal lipid levels & lipid goals/NCEP guidelines and Instruct on cholesterol Referral to dietitian:: Yes 30-day Reassessments:: Progressing Diabetes (Other Core Measures) Diabetes Type: Diagnosis Type II ICD-10 E11 Insulin dependent injection/pump?: Yes Non-Insulin Dependent?: Yes Do you monitor your blood sugar at home?: Yes Referral to Diabetic Clinic:: Yes Outcomes/Goals:: Able to state symptoms of, Able to state and Able to state Intervention/Plan:: Instruct on, Refer to and Instruct on 30-day Reassessments:: Progressing Weight Mgt (Other Care) Not Applicable: Yes Height: 5 ft 5 in Weight:: 149 lb 8 oz BMI: 24.8 Diagnosis Overweight/Obesity BMI> 30% ICD-10 E66: No Diagnosis High BMI/Morbid Obesity BMI> 35% ICD-10 Z68: No Outcomes/Goals: Pt sets, maintains & shows weight loss goal & trend during rehab Intervention/Plan: Instruct on ideal BMI & set weight loss goal w/patient 30 day Reassessments:: Met Healthy Eating Habits Will attend diet classes:: Yes Outcomes/Goals:: Consume diet rich in vegs,fruits,whole grain/high fiber,fish,lean meat and Limit sat/trans fats,cholesterol & added salts & sugars Intervention/Plan:: Assess current eating habits 30-day Reassessments:: Met Education Gave educational materials for:: Signs & symptoms of hypoglycemia, Signs & symptoms of hyperglycemia, Relate diabetes to coronary artery disease and Healthy eating Nutrition - Final Assessment Weight Mgt (Other Care) Height: 5 ft 5 in Weight:: 149 lb 8 oz BMI: 24.8
[2023-10-12 05:56] VITALS: BP 112/52
[2023-10-12 06:05] VITALS: BP 112/52; BMI 24.8
== END 2023-10-31 23:59 ==
LOC: CR 11:30
PROVIDERS: PCP Internal Medicine
DX: I25.10 Atherosclerotic heart disease of native coronary artery without angina pectoris (principal); E78.2 Mixed hyperlipidemia; E11.22 Type 2 diabetes mellitus with diabetic chronic kidney disease; I12.9 Hypertensive chronic kidney disease with stage 1 through stage 4 chronic kidney disease, or unspecified chronic kidney disease; N18.32 Chronic kidney disease, stage 3b; I21.4 Non-ST elevation (NSTEMI) myocardial infarction
CPT/HCPCS: 93798